=== PATIENT | male | born 1975 ===

== ENCOUNTER 2023-05-06 05:48 | Day surgery (SDC) | payer MEDICAID, OTHER ==
[~2023-05-06 05:48] MED LIST: Dextrose 5%-0.45% NaCl 1,000 ML IV SCH; Sodium Chloride 0.9% 10 ML Syringe FLUSH PRN; Sodium Chloride 0.9% 10 ML Syringe FLUSH SCH
[2023-05-06] MEDS ORDERED: Dextrose 5%-0.45% NaCl 1,000 ML IV SCH (06:00)
[2023-05-06] MEDS ORDERED: Midazolam 1 MG/ML 2 ML SDV ONE (06:20)
[2023-05-06] MEDS ORDERED: fentaNYL 100 MCG/2 ML SDV ONE (06:21)
[2023-05-06] MEDS ORDERED: fentaNYL 100 MCG/2 ML SDV IV ONE ×2 (06:30→06:31)
[2023-05-06] MEDS ORDERED: Midazolam 1 MG/ML 2 ML SDV IV ONE ×4 (06:31→06:39)
== END 2023-05-06 08:24 | disposition home or self-care (01) ==
LOC: DL.ENDO 05:48
PROVIDERS: ATTEND Internal Medicine Gastroenterology
DX: Z12.11 Encounter for screening for malignant neoplasm of colon (principal); E78.00 Pure hypercholesterolemia, unspecified; E66.09 Other obesity due to excess calories; R73.9 Hyperglycemia, unspecified; Z68.36 Body mass index [BMI] 36.0-36.9, adult; Z98.890 Other specified postprocedural states
CPT/HCPCS: J2250; J3010; J7042